=== PATIENT | female | born 1985 | race Caucasian/White ===

== ENCOUNTER 2017-05-15 18:12 | Emergency (ER) | payer SELFPAY ==
[~2017-05-15 18:12] MED LIST: Sodium Chloride 0.9% 1,000 ML BAG ONE
[2017-05-15] MEDS ORDERED: Morphine 4 MG/ML VIAL ONE ×2 (18:34→19:43)
[2017-05-15 18:40] LABS: Bilirubin Negative (Negative); Blood, Urine Moderate (Negative); Clarity Slightly Cloudy (Clear); Glucose, Urine (Dipstick) 100 mg/dL (Negative); Leukocyte Large (Negative); Nitrite Positive (Negative); Protein, Urine (Dipstick) 100 mg/dL (Neg-Trace); pH, Urine 6.5 (5.0-9.0)
[2017-05-15 18:41] LABS: Pregu Control Background? CLEAR/WHITE (CLR/WHITE); Pregu Control Bar Appear? YES (CONTROL BAR)
[2017-05-15 18:42] LABS: Pregnancy Test - Urine (BHCG) Negative (Negative)
[2017-05-15 18:45] LABS: Bacteria/HPF 3+ HPF (None Seen); RBC/HPF 21-50 HPF (0-3); WBC/HPF 21-50 HPF (0-3)
[2017-05-15] MEDS ORDERED: Levofloxacin 500 mg/D5W 100 ml Premix Bag ONE (19:15)
[2017-05-15 19:20] LABS: ALT (SGPT) 28 U/L (8-55); AST (SGOT) 31 U/L (5-34); Albumin 2.9 g/dL (3.5-5.0); Alkaline Phosphatase 92 U/L (40-150); Anion Gap 17 mmol/L (10-20); BUN (Urea Nitrogen) 18 mg/dL (7.0-18.7); Bilirubin, Total 0.9 mg/dL (0.2-1.2); Calc. Creatinine Clearance 0 mL/min (70-130); Calcium 8.4 mg/dL (7.8-10.44); Carbon Dioxide 21 mmol/L (22-29); Chloride 103 mmol/L (98-107); Estimated GFR-MDRD Greater than 90; Glucose 99 mg/dL (70-105); Lipase 15 U/L (8-78); Protein, Total 5.9 g/dL (6.0-8.3); Sodium 138 mmol/L (136-145)
[2017-05-15 19:24] LABS: Band 3 % (5-11); Hemoglobin 9.7 g/dL (12.0-16.0); Lymphocytes 5 % (21-51); MDiff Complete? YES; Mean Corpuscular HGB CONC 34.4 g/dL (32.0-36.0); Mean Corpuscular Hemoglobin 31.1 pg (27.0-31.0); Mean Corpuscular Volume 90.4 fl (81.0-99.0); Mean Platelet Volume 6.4 fL (7.4-10.4); Monocytes 3 % (0-10); Neutrophil 89 % (42-75); PLT Morphology Comment Appears Adequate; Platelet Count 174 thou/uL (130-400); RBC Distribution Width 13.2 % (11.5-14.5); Red Blood Cell (RBC) Count 3.12 mill/uL (4.20-5.40); White Blood Cell (WBC) Count 13.9 thou/uL (4.8-10.8)
[2017-05-15 19:30] LABS: Potassium 2.6 mmol/L (3.5-5.1)
--- NOTE | 2017-05-15 19:56 | CT ---
NONCONTAST ABDOMEN AND PELVIC CT: Indication: Left flank pain. Comparison: None. FINDINGS: Mild volume loss at lung bases and there is trace pleural thickening/fluid seen. Mild fluid of the pe ricardial space also identified. There is asymmetric prominence of the left kidney. Bilateral renal c alculi are present. There is asymmetric mild prominence of the left urinary collection system which m ay relate to a punctate distal left ureteral calculus approximating the expected region of the distal ureter prior to the UVJ. It is difficult to delineate due to unopacified fluid filled bowel in this region. Solid abdominal organs, bowel, and lymph nodes, and vasculature is limited without the presen ce of iodinated contrast. There is no free air. Osseous structures reveal no acute findings. There is right convexity curvature of the lumbar spine. There is minimal vascular calcification. IMPRESSION: 1. Mild left obstructive uropathy with probable distal left ureteral calculus, 2-3 mm in size. Correl ation with IVP may prove useful as the location is difficult to delineate due to numerous unopacified fluid filled bowel loops of this region. 2. Bilateral nephrolithiasis. POS: [facility]
[2017-05-15 20:31] LABS: Bilirubin Negative (Negative); Blood, Urine Small (Negative); Glucose, Urine (Dipstick) 100 mg/dL (Negative); Leukocyte Trace (Negative); Nitrite Positive (Negative); Protein, Urine (Dipstick) 100 mg/dL (Neg-Trace); Urobilinogen 0.2 mg/dL (0.2-1.0)
[2017-05-15 20:32] LABS: Clarity Hazy (Clear); Specific Gravity, Urine 1.005 (1.002-1.036)
[2017-05-15 20:35] LABS: Bacteria/HPF 2+ HPF (None Seen); WBC/HPF 0-3 HPF (0-3)
[2017-05-15] MEDS ORDERED: Potassium Chloride 20 MEQ/100 ML PREMIX BAG ONE (20:59)
== END 2017-05-15 21:20 | disposition short-term general hospital (02) ==
LOC: MADERS 18:12
DX: N13.6 Pyonephrosis (principal); E87.6 Hypokalemia; I95.9 Hypotension, unspecified
CPT/HCPCS: 36415; 51701; 74176; 80053; 81003; 81015; 81025; 83690; 85025; 87086; 96361; 96365; 96366; 96368; 96375; 96376; A4353; J1956; J2270; J3480; J7050

== ENCOUNTER 2019-01-27 18:56 | Emergency (ER) | payer MEDICAID, SELFPAY ==
[2019-01-27 19:20] LABS: Bilirubin Negative (Negative); Blood, Urine Trace (Negative); Clarity Slightly Cloudy (Clear); Glucose, Urine (Dipstick) Negative (Negative); Leukocyte Moderate (Negative); Nitrite Negative (Negative); Protein, Urine (Dipstick) 30 mg/dL (Neg-Trace)
[2019-01-27 19:31] LABS: Bacteria/HPF Rare-Few HPF (None Seen); RBC/HPF 0-3 HPF (0-3); Squamous Epithelial 0-3 HPF (0-3); WBC/HPF Greater than 50 HPF (0-3)
[2019-01-27 20:30] LABS: Eosinophils 4 % (0-10); Lymphocytes 44 % (21-51); MDiff Complete? YES; Mean Corpuscular HGB CONC 33.6 g/dL (32.0-36.0); Mean Corpuscular Volume 89.2 fL (78.0-98.0); Mean Platelet Volume 4.4 fL (7.4-10.4); Monocytes 6 % (0-10); Neutrophil 37 % (42-75); Platelet Count 336 thou/uL (130-400); Platelet Morphology Comment Appears Adequate; RBC Distribution Width 12.3 % (11.5-14.5); RBC Morphology Normal; Reactive Lymphocytes 9 % (0-10); Red Blood Cell (RBC) Count 4.01 mill/uL (4.20-5.40); White Blood Cell (WBC) Count 6.1 thou/uL (4.8-10.8)
[2019-01-27 20:31] LABS: ALT (SGPT) 25 U/L (8-55); AST (SGOT) 28 U/L (5-34); Albumin 4.3 g/dL (3.5-5.0); Alkaline Phosphatase 92 U/L (40-150); Anion Gap 13 mmol/L (10-20); BUN (Urea Nitrogen) 9 mg/dL (7.0-18.7); Bilirubin, Total 0.4 mg/dL (0.2-1.2); Calc. Creatinine Clearance 0 mL/min (70-130); Calcium 9.2 mg/dL (7.8-10.44); Carbon Dioxide 25 mmol/L (22-29); Chloride 106 mmol/L (98-107); Estimated GFR-MDRD Greater than 90; Globulin 3.6 g/dL (2.4-3.5); Glucose 88 mg/dL (70-105); Lipase 56 U/L (8-78); Potassium 3.2 mmol/L (3.5-5.1); Protein, Total 7.9 g/dL (6.0-8.3); Sodium 141 mmol/L (136-145)
--- NOTE | 2019-01-27 20:37 | CT ---
CT Stone Protocol HISTORY: Back pain and blood in urine. COMPARISON: 05/15/2017 study. FINDINGS: The lung bases are clear. The liver and spleen show no focal findings. Pancreas and gallbladder regions appear unremarkable. Right and left adrenal glands are normal in appearance. Punctate bilateral nonobstructing renal calcu li are seen. No dilatation of either collecting system or definitive ureteral calculi. There are calcifications in the left side the pelvis but given the lack of any dilatation of the ureter this is felt to represent phleboliths. There is no significant periaortic or mesenteric adenopathy. CT of pelvis performed without contrast enhancement: There is no evidence of adenopathy, mass or free fluid. The appendix region appears unremarkable. IMPRESSION: Bilateral nonobstructing renal calculi.
[2019-01-27 20:38] LABS: Pregnancy Test - Urine (BHCG) Negative (Negative); Pregu Control Background? CLEAR/WHITE (CLR/WHITE); Pregu Control Bar Appear? YES (CONTROL BAR)
[2019-01-27] MEDS ORDERED: HYDROcodone/Acetaminophen 5/325 mg Tablet ONE (21:22)
[2019-01-27] MEDS ORDERED: Lidocaine 1% 20 ML MDV ONE (21:22)
[2019-01-27] MEDS ORDERED: cefTRIAXone\\ROCEPHIN 1 GM VIAL ONE (21:22)
== END 2019-01-27 21:40 | disposition home or self-care (01) ==
LOC: MADERS 18:56
DX: N12 Tubulo-interstitial nephritis, not specified as acute or chronic (principal); N39.0 Urinary tract infection, site not specified
CPT/HCPCS: 36415; 74176; 80053; 81001; 81025; 83605; 83690; 85025; 87086; 96372; J0696; J2001

== ENCOUNTER 2019-03-22 11:21 | Emergency (ER) | payer OTHER ==
[2019-03-22] MEDS ORDERED: Ondansetron PF 4 MG/2 ML Vial ONE (12:12)
[2019-03-22] MEDS ORDERED: Sodium Chloride 0.9% 1,000 ML ONE (12:12)
[2019-03-22] MEDS ORDERED: Ketorolac Tromethamine 30 MG/ML VIAL ONE (12:12)
[2019-03-22 12:16] LABS: Bilirubin Negative (Negative); Blood, Urine Small (Negative); Clarity Clear (Clear); Glucose, Urine (Dipstick) Negative (Negative); Leukocyte Negative (Negative); Nitrite Negative (Negative); Protein, Urine (Dipstick) Trace mg/dL (Neg-Trace); Urobilinogen 0.2 mg/dL (Less than 2)
[2019-03-22 12:22] LABS: #Basophils 0.1 thou/uL (0.0-0.2); #Lymphocytes 2.4 thou/uL (1.20-3.40); #Monocytes 0.5 thou/uL (0.11-0.59); #Neutrophils 3.2 thou/uL (1.40-6.50); %Basophils 1.3 % (0.0-1.0); %Eosinophils 0.8 % (0.0-10.0); %Lymphocytes 38.8 % (21.0-51.0); %Monocytes 7.4 % (0.0-10.0); %Neutrophils 51.7 % (42.0-75.0); Hemoglobin 13.3 g/dL (12.0-16.0); Mean Corpuscular HGB CONC 33.2 g/dL (32.0-36.0); Mean Corpuscular Hemoglobin 29.3 pg (27.0-31.0); Mean Corpuscular Volume 88.1 fL (78.0-98.0); Mean Platelet Volume 4.5 fL (7.4-10.4); Platelet Count 297 thou/uL (130-400); RBC Distribution Width 12.3 % (11.5-14.5); Red Blood Cell (RBC) Count 4.54 mill/uL (4.20-5.40); White Blood Cell (WBC) Count 6.2 thou/uL (4.8-10.8)
[2019-03-22 12:23] LABS: Bacteria/HPF Rare-Few HPF (None Seen); WBC/HPF 0-3 HPF (0-3)
[2019-03-22 12:34] LABS: ALT (SGPT) 74 U/L (8-55); AST (SGOT) 37 U/L (5-34); Albumin 4.7 g/dL (3.5-5.0); Alkaline Phosphatase 69 U/L (40-110); Anion Gap 14 mmol/L (10-20); BUN (Urea Nitrogen) 16 mg/dL (7.0-18.7); Bilirubin, Total 0.6 mg/dL (0.2-1.2); Calc. Creatinine Clearance 0 mL/min (70-130); Calcium 10.2 mg/dL (7.8-10.44); Carbon Dioxide 23 mmol/L (22-29); Chloride 106 mmol/L (98-107); Estimated GFR-MDRD 85; Globulin 3.2 g/dL (2.4-3.5); Glucose 101 mg/dL (70-105); Potassium 3.5 mmol/L (3.5-5.1); Protein, Total 7.9 g/dL (6.0-8.3); Sodium 139 mmol/L (136-145)
[2019-03-22 12:59] LABS: Pregnancy Test - Urine (BHCG) Negative (Negative)
[2019-03-22 13:00] LABS: Pregu Control Background? CLEAR/WHITE (CLR/WHITE); Pregu Control Bar Appear? YES (CONTROL BAR); Specific Gravity 1.025 (1.002-1.036)
[2019-03-22 13:04] LABS: Amphetamine Not Detected (NotDetected); Barbiturates Screen Not Detected (NotDetected); Benzodiazepine Screen Not Detected (NotDetected); Cocaine Metabolite Screen Not Detected (NotDetected); Medtox Control Line Valid? VALID (VALID); Methadone Not Detected (NotDetected); Methamphetamine Not Detected (NotDetected); Opiate Screen Not Detected (NotDetected); Oxycodone Screen Not Detected (NotDetected); Phencyclidine (PCP) Not Detected (NotDetected); THC/Cannabinoid Screen Not Detected (NotDetected); Tricyclic Screen Not Detected (NotDetected)
--- NOTE | 2019-03-22 13:49 | CT ---
CT ABDOMEN AND PELVIS WITHOUT IV CONTRAST: Date: 03/22/19 INDICATION: Left flank pain. History of renal calculi. Comparison made to CT abdomen and pelvis dated 01/27/19. FINDINGS: Liver, spleen, and pancreas unremarkable. Review of the urinary tract reveals left hydronephrosis. Di latation of the left ureter. There is a 5 mm obstructing calculus at the left UVJ. This calculus was previously noted in the lower pole collecting structures of the left kidney. The bladder is contracte d and not well evaluated. Right side collecting structures are unremarkable. Nonobstructing calculi in the lower pole of the ri ght kidney appear stable from the recent exam. Visualized bowel loops are unremarkable. IMPRESSION: 5 mm obstructing calculus at left UVJ with prominent left hydronephrosis and hydroureter. POS: [facility]
[2019-03-22] MEDS ORDERED: Morphine 4 MG/ML VIAL ONE (13:55)
[2019-03-22] MEDS ORDERED: Tamsulosin HCl 0.4 MG CAP ONE (13:55)
[2019-03-22] MEDS ORDERED: Sodium Chloride 0.9% 100 ML ONE (15:04)
[2019-03-22] MEDS ORDERED: cefTRIAXone\\ROCEPHIN 1 GM VIAL ONE (15:04)
== END 2019-03-22 15:33 | disposition short-term general hospital (02) ==
LOC: MADERS 11:21
DX: N13.2 Hydronephrosis with renal and ureteral calculous obstruction (principal)
CPT/HCPCS: 74176; 80053; 80306; 81003; 81015; 81025; 85025; 94760; 96361; 96365; 96375; J0696; J1885; J2270; J2405; J3490; J7050

== ENCOUNTER 2019-04-01 12:58 | Outpatient (CLI) | payer OTHER ==
[2019-04-01 13:27] LABS: Bilirubin Negative (Negative); Blood, Urine Trace (Negative); Clarity Clear (Clear); Glucose, Urine (Dipstick) Negative (Negative); Leukocyte Negative (Negative); Nitrite Negative (Negative); Protein, Urine (Dipstick) Negative (Neg-Trace); Urobilinogen 0.2 mg/dL (Less than 2)
[2019-04-01 13:29] LABS: Bacteria/HPF Rare-Few HPF (None Seen); WBC/HPF 0-3 HPF (0-3)
--- NOTE | 2019-04-01 13:56 | CT ---
CT Stone Protocol: 04/01/2019 1:40 PM HISTORY: Left ureteral stone with hydronephrosis COMPARISON: 03/22/2019 TECHNIQUE: Multiple contiguous axial images were obtained and a CT of the abdomen and pelvis without IV contrast . Coronal and sagittal reformats were performed. FINDINGS: This examination is limited for the evaluation of solid organs and vascular structures due to the lac k of intravenous contrast. Lower Chest: within normal limits. Abdomen: Liver: within normal limits. Bile Ducts: Normal caliber. Gallbladder: No calcified gallstones. Normal caliber wall. Pancreas: within normal limits. Spleen: within normal limits. Adrenals: within normal limits. Kidneys: Nonobstructing right renal calculi measuring up to 4 mm in size. Pelvis: Reproductive Organs: Status post hysterectomy Ureters: within normal limits. No ureteral calcifications. Phleboliths are seen in the pelvis. Bladder: within normal limits. Bowel: Normal caliber. Mesenteric Lymph Nodes: No enlarged mesenteric lymph nodes. Peritoneum: No ascites or free air, no fluid collection. Vessels: Normal caliber aorta Retroperitoneum: within normal limits. Abdominal Wall: within normal limits. Bones: Unremarkable. IMPRESSION: Nonobstructing right renal calcifications.
== END 2019-04-01 12:59 | disposition home or self-care (01) ==
LOC: MADLAB 12:58
PROVIDERS: ATTEND Urology
DX: N13.2 Hydronephrosis with renal and ureteral calculous obstruction (principal); N28.89 Other specified disorders of kidney and ureter
CPT/HCPCS: 74176; 81001; 87086

== ENCOUNTER 2019-06-02 12:51 | Emergency (ER) | payer OTHER ==
[2019-06-02] MEDS ORDERED: Ondansetron PF 4 MG/2 ML Vial ONE (13:47)
[2019-06-02] MEDS ORDERED: Sodium Chloride 0.9% 1,000 ML ONE (13:47)
[2019-06-02] MEDS ORDERED: Ketorolac Tromethamine 30 MG/ML VIAL ONE (13:47)
[2019-06-02 14:16] LABS: Bilirubin Negative (Negative); Blood, Urine Trace (Negative); Clarity Clear (Clear); Glucose, Urine (Dipstick) Negative (Negative); Leukocyte Negative (Negative); Nitrite Negative (Negative); Protein, Urine (Dipstick) Negative (Neg-Trace); Urobilinogen 0.2 mg/dL (Less than 2)
--- NOTE | 2019-06-02 14:17 | CT ---
CT Stone Protocol 06/02/2019 1:45 PM HISTORY: Right flank pain. History of renal stones. COMPARISON: 04/01/2019 Technique: Multiple contiguous axial CT images are obtained through the abdomen and pelvis without IV contrast. Coronal reformats are provided. FINDINGS: This examination is limited for the evaluation of solid organs and vascular structures due to the lac k of intravenous contrast. Lower Chest: within normal limits. Abdomen: Liver: Grossly normal non-enhanced CT appearance. Gallbladder: Within normal limits for CT imaging. Pancreas: Grossly normal nonenhanced CT appearance. Spleen: Small splenic granuloma. Adrenals: Grossly normal nonenhanced CT appearance. Kidneys: 2 nonobstructing inferior pole right renal calculi with single punctate superior pole right renal calculus are again present. No left renal calculus is seen, and there is no hydronephrosis. Ureters: No ureteral calculus is seen.. Pelvis: Urinary bladder: Decompressed. Reproductive Organs: No pelvic masses. Lymph Nodes: No enlarged lymph nodes. Bowel: Small amount of retained fecal material seen throughout the colon. Loops of small bowel are no rmal in caliber. Appendix: The appendix is normal in caliber. Peritoneum: No free fluid, free air, or fluid collection. Retroperitoneum: within normal limits. Vessels: Abdominal aorta is normal in caliber. Abdominal Wall: within normal limits. Bones: within normal limits. IMPRESSION: 1. Stable nonobstructing right renal calculi. No left renal calculus is seen. No ureteral calculi or hydronephrosis is seen bilaterally. 2. No CT evidence of appendicitis.
[2019-06-02 14:19] LABS: #Basophils 0.1 thou/uL (0.0-0.2); #Lymphocytes 2.1 thou/uL (1.20-3.40); #Monocytes 0.4 thou/uL (0.11-0.59); #Neutrophils 3.2 thou/uL (1.40-6.50); %Basophils 1.3 % (0.0-1.0); %Eosinophils 0.3 % (0.0-10.0); %Lymphocytes 36.8 % (21.0-51.0); %Monocytes 6.2 % (0.0-10.0); %Neutrophils 55.4 % (42.0-75.0); Hemoglobin 13.5 g/dL (12.0-16.0); Mean Corpuscular HGB CONC 30.9 g/dL (32.0-36.0); Mean Corpuscular Hemoglobin 29.7 pg (27.0-31.0); Mean Corpuscular Volume 96.1 fL (78.0-98.0); Mean Platelet Volume 5.4 fL (7.4-10.4); Platelet Count 292 thou/uL (130-400); RBC Distribution Width 13.2 % (11.5-14.5); Red Blood Cell (RBC) Count 4.53 mill/uL (4.20-5.40); White Blood Cell (WBC) Count 5.7 thou/uL (4.8-10.8)
[2019-06-02 14:22] LABS: RBC/HPF 0-3 HPF (0-3); WBC/HPF None Seen HPF (0-3)
[2019-06-02 14:23] LABS: Bacteria/HPF Rare-Few HPF (None Seen)
[2019-06-02 14:34] LABS: Anion Gap 15 mmol/L (10-20); BUN (Urea Nitrogen) 12 mg/dL (7.0-18.7); Calc. Creatinine Clearance 0 mL/min (70-130); Calcium 10.2 mg/dL (7.8-10.44); Carbon Dioxide 25 mmol/L (22-29); Chloride 105 mmol/L (98-107); Estimated GFR-MDRD Greater than 90; Glucose 93 mg/dL (70-105); Potassium 3.6 mmol/L (3.5-5.1); Sodium 141 mmol/L (136-145)
[2019-06-02] MEDS ORDERED: Morphine 2 MG/ML SYRINGE ONE (15:47)
== END 2019-06-02 16:09 | disposition home or self-care (01) ==
LOC: MADERS 12:51
DX: R10.9 Unspecified abdominal pain (principal); F41.9 Anxiety disorder, unspecified; F32.9 Major depressive disorder, single episode, unspecified
CPT/HCPCS: 36415; 74176; 80048; 81003; 81015; 85025; 96361; 96374; 96375; J1885; J2270; J2405; J7050